=== PATIENT | female | born 1975 | race Caucasian/White ===

== ENCOUNTER 2019-11-12 12:29 | Emergency (ER) | payer BC, OTHER ==
[2019-11-12] MEDS ORDERED: Ondansetron 4 MG/2 ML SDV IVPUSH ONE (13:27)
[2019-11-12] MEDS ORDERED: HYDROmorphone 1 MG/ML Syringe IVPUSH STA (13:27)
[2019-11-12] MEDS ORDERED: Sodium Chloride 0.9% 1,000 ML IV SCH (13:30)
--- NOTE | 2019-11-12 14:08 | EDM.PDOC ---
ED HPI GENERAL MEDICAL PROBLEM - General Chief Complaint: Gastrointestinal Problem Stated Complaint: VOMITING/DIARRHEA Time Seen by Provider: 11/12/19 13:27 Source of Information: Reports: Patient, RN Notes Reviewed History Limitations: Reports: No Limitations - History of Present Illness INITIAL COMMENTS - FREE TEXT/NARRATIVE: Patient is a 43-year-old female who presents to the ED for the evaluation of vomiting and diarrhea. Patient notes this is been present for around 5 days, she states that nothing she has eaten or drank has really stayed down at all. She is also complaining of pain in her left upper abdomen, this is worsened over the last 3 days. She does note some chills at home but has not been complaining of any fever as she does not have a thermometer at home. The patient did not take any sort of uuau-rob-nzhdyul medications for the vomiting or diarrhea. She states that she is getting dizzy when standing at this time as well. Patient notes a history for a bilateral mastectomy, in 2015. She notes that she does have a trams flap, which she explained to us as the abdominal wall, being utilized onto the chest wall for padding after the mastectomy. Patient's primary care provider is Dr. Mandel. She states that she had a surgery done September 08, and was given 1 dose of antibiotics for this prior to that surgery otherwise she relates no other antibiotic use in this timeframe. Left Upper Abdomen Pain Score (Numeric/FACES): 7 - Related Data Allergies Allergy/AdvReac Type Severity Reaction Status Date / Time metoclopramide [From Reglan] Allergy Other Verified 11/12/19 13:13 morphine Allergy Other Verified 11/12/19 13:13 Home Meds: Home Meds Zolpidem [Ambien] 10 mg PO DAILY 04/17/19 [History] traZODone HCl [Trazodone HCl] 150 mg PO DAILY 04/17/19 [History] [place] Carbonate [[place] Carbonate ER] 450 mg PO BID 11/12/19 [History] Ondansetron [Zofran ODT] 4 mg PO Q8H PRN #12 tab.dis 11/12/19 [Rx] Past Medical History Psychiatric History: Reports: Anxiety, Depression, Suicide Attempt - Past Surgical History GI Surgical History: Reports: Appendectomy, Cholecystectomy Female Surgical History: Reports: Breast Implant, Hysterectomy, Mastectomy, Tubal Ligation Other Female Surgeries/Procedures: bilateral mastectomy Social & Family History - Tobacco Use Smoking Status *Q: Current Every Day Smoker Years of Tobacco use: 20 Packs/Tins Daily: 0.5 - Caffeine Use Caffeine Use: Reports: Energy Drinks - Recreational Drug Use Recreational Drug Use: No ED ROS GENERAL - Review of Systems Review Of Systems: See Below Constitutional: Reports: Chills, Decreased Appetite. Denies: Fever Respiratory: Denies: Shortness of Breath, Cough Cardiovascular: Denies: Chest Pain GI/Abdominal: Reports: Abdominal Pain (LUQ), Diarrhea, Decreased Appetite, Nausea, Vomiting : Denies: Dysuria, Frequency, Urgency Musculoskeletal: Reports: Back Pain (L upper back) ED EXAM, GI/ABD - Physical Exam Exam: See Below Exam Limited By: No Limitations General Appearance: Alert, WD/WN, No Apparent Distress Respiratory/Chest: No Respiratory Distress, Lungs Clear, Normal Breath Sounds, No Accessory Muscle Use, Chest Non-Tender Cardiovascular: Normal Peripheral Pulses, Regular Rate, Rhythm, No Murmur GI/Abdominal Exam: Normal Bowel Sounds, Soft, No Distention, No Mass, Tender ( Upper abdomen mainly, there is some hardness noted to upper abdomen over her trams flap scars, suggestive of increased scar tissue.) Back Exam: Normal Inspection, Full Range of Motion. No: CVA Tenderness (L), CVA Tenderness (R) Extremities: Normal Inspection, Normal Capillary Refill Neurological: Alert, Oriented, Normal Cognition, No Motor/Sensory Deficits Psychiatric: Normal Affect, Normal Mood Skin Exam: Warm, Dry, Intact, Normal Color, No Rash Course - Vital Signs Last Recorded V/S: Last Vital Signs Temp 97.7 F 11/12/19 13:14 Pulse 80 11/12/19 13:14 Resp 16 11/12/19 13:14 BP 121/75 11/12/19 13:14 Pulse Ox 100 11/12/19 13:14 - Orders/Labs/Meds Orders: Active Orders 24 hr Category Date Time Status Abdomen Pelvis w Cont [CT] Stat Exams 11/12/19 14:08 Ordered C DIFFICILE PCR W/REFLEX [MOLEC] Stat Lab 11/12/19 16:35 Received CULTURE STOOL + SHIGATOX [RM] Stat Lab 11/12/19 14:07 Ordered Sodium Chloride 0.9% [Normal Saline] 1,000 ml Med 11/12/19 13:30 Ordered IV ASDIRECTED Sodium Chloride 0.9% [Saline Flush] Med 11/12/19 15:31 Active 10 ml FLUSH ONETIME PRN Medication Orders Sodium Chloride (Normal Saline) 1,000 mls @ 999 mls/hr IV ASDIRECTED ROSA Last Admin: 11/12/19 15:45 Dose: 999 mls/hr Sodium Chloride (Saline Flush) 10 ml FLUSH ONETIME PRN PRN Reason: IV FLUSH Last Admin: 11/12/19 15:41 Dose: 10 ml Labs: Laboratory Tests 11/12/19 11/12/19 11/12/19 Range/Units 14:00 14:00 15:35 WBC 9.77 (3.98-10.04) K/mm3 RBC 5.04 (3.98-5.22) M/mm3 Hgb 14.8 (11.2-15.7) gm/dl Hct 45.7 H (34.1-44.9) % MCV 90.7 D (79.4-94.8) fl MCH 29.4 (25.6-32.2) pg MCHC 32.4 (32.2-35.5) g/dl RDW Std Deviation 48.7 H (36.4-46.3) fL Plt Count 266 (182-369) K/mm3 MPV 9.8 (9.4-12.3) fl Neutrophils % (Manual) 56 (40-60) % Band Neutrophils % 0 (0-10) % Lymphocytes % (Manual) 23 (20-40) % Atypical Lymphs % 0 % Monocytes % (Manual) 5 (2-10) % Eosinophils % (Manual) 16 H (0.7-5.8) % Basophils % (Manual) 0 L (0.1-1.2) Platelet Estimate Adequate RBC Morph Comment Normal Sodium 140 (136-145) mEq/L Potassium 4.2 (3.5-5.1) mEq/L Chloride 106 (98-107) mEq/L Carbon Dioxide 23 (21-32) mEq/L Anion Gap 15.2 H (5-15) BUN 7 (7-18) mg/dL Creatinine 0.9 (0.55-1.02) mg/dL Est Cr Clr Drug Dosing 62.07 mL/min Estimated GFR (MDRD) > 60 (>60) mL/min BUN/Creatinine Ratio 7.8 L (14-18) Glucose 84 (74-106) mg/dL Calcium 9.3 (8.5-10.1) mg/dL Total Bilirubin 0.2 (0.2-1.0) mg/dL AST 13 L (15-37) U/L ALT 23 (14-59) U/L Alkaline Phosphatase 85 (46-116) U/L Total Protein 7.3 (6.4-8.2) g/dl Albumin 3.6 (3.4-5.0) g/dl Globulin 3.7 gm/dL Albumin/Globulin Ratio 1.0 (1-2) Lipase 121 (73-393) U/L Urine Color Light yellow (Yellow) Urine Appearance Clear (Clear) Urine pH 7.5 (5.0-8.0) Ur Specific [place] 1.020 (1.005-1.030) Urine Protein Negative (Negative) Urine Glucose (UA) Negative (Negative) Urine Ketones Negative (Negative) Urine Occult Blood Negative (Negative) Urine Nitrite Negative (Negative) Urine Bilirubin Negative (Negative) Urine Urobilinogen 0.2 (0.2-1.0) Ur Leukocyte Esterase Negative (Negative) Urine RBC 0-5 (0-5) /hpf Urine WBC 0-5 (0-5) /hpf Ur Squamous Epith Cells 5-10 H (0-5) /hpf Urine Bacteria Few (FEW) /hpf Urine Mucus Few (FEW) /hpf Meds: Medications Generic Name Dose Route Start Last Admin Trade Name Freq PRN Reason Stop Dose Admin Sodium Chloride 1,000 mls @ 999 mls/hr 11/12/19 13:30 11/12/19 15:45 Normal Saline IV 999 mls/hr ASDIRECTED ROSA Administration Sodium Chloride 10 ml 11/12/19 15:31 11/12/19 15:41 Saline Flush FLUSH 10 ml ONETIME PRN Administration IV FLUSH Discontinued Medications Generic Name Dose Route Start Last Admin Trade Name Freq PRN Reason Stop Dose Admin Diatrizoate Meglum/Diatrizoate Sod 90 ml 11/12/19 15:31 11/12/19 15:41 Gastrografin 37% PO 11/12/19 15:32 90 ml ONETIME ONE Administration Dicyclomine HCl 20 mg 11/12/19 18:05 11/12/19 18:13 Bentyl PO 11/12/19 18:06 20 mg ONETIME ONE Administration Hydromorphone HCl 0.5 mg 11/12/19 13:27 11/12/19 15:30 Dilaudid IVPUSH 11/12/19 13:28 0.5 mg ONETIME STA Administration Promethazine HCl 25 mg/ Sodium 51 mls @ 100 mls/hr 11/12/19 17:36 11/12/19 17 :59 Chloride IV 11/12/19 18:06 100 mls/hr ONETIME ONE Administration Iopamidol 100 ml 11/12/19 15:31 11/12/19 15:41 Isovue-300 (61%) IVPUSH 11/12/19 15:32 100 ml ONETIME ONE Administration Loperamide HCl 4 mg 11/12/19 14:24 11/12/19 15:45 Imodium PO 11/12/19 14:25 4 mg ONETIME ONE Administration Ondansetron HCl 4 mg 11/12/19 13:27 11/12/19 15:28 Zofran IVPUSH 11/12/19 13:28 4 mg ONETIME ONE Administration - Re-Assessments/Exams Free Text/Narrative Re-Assessment/Exam: 11/12/19 14:11 She presents to the ED for the evaluation of nausea and vomiting and diarrhea for the past 5 days. She states she does not been able to keep anything down per mouth, or it came straight back out the other end. Will get some IV fluids , 0.5 mg IV Dilaudid, 4 mg Zofran, CBC, CMP, UA, lipase, abdomen pelvis CT. Along with stool cultures if she can provide us with one. 11/12/19 16:14 Was reported by nursing that they were having difficulties getti an IV established. Patient started fluids and got pain meds quite late. CT is back, and demonstrates no acute abnormalities appreciated. Patient has not been able to give us a urinalysis or stool samples at this time. 11/12/19 18:20 Patient was able to provide us with a stool sample, she does have a few white blood cells noted in her stools, C. difficile has been collected as well. This is negative however. Due to the patient's length of symptoms, I will try to treat her conservatively and see if it does not get better over the weekend, and if it does not she should be reevaluated early next week. Departure - Departure Time of Disposition: 16:27 Disposition: Home, Self-Care 01 Condition: Fair Clinical Impression: Gastroenteritis - Discharge Information *PRESCRIPTION DRUG MONITORING PROGRAM REVIEWED*: No *COPY OF PRESCRIPTION DRUG MONITORING REPORT IN PATIENT ABELARDO: No Prescriptions: Ondansetron [Zofran ODT] 4 mg PO Q8H PRN #12 tab.dis PRN Reason: Nausea Instructions: Food Choices to Help Relieve Diarrhea, Adult Referrals: Alok Quinones MD [Primary Care Provider] - Forms: ED Department Discharge Additional Instructions: You have been evaluated in the ED for nausea/vomiting/diarrhea. It is likely that this is caused from a viral gastroenteritis. You did receive a CT in the ER, and this demonstrated no focal abnormalities. Your laboratory evaluation also was within normal limits. You have received IV fluid in the ED to help with the dehydration from the vomiting and diarrhea. Over the next 24-48 hours please try to limit diet to clear liquids and advance as tolerate to a bland diet to alleviate symptoms of nausea/vomiting/diarrhea. It is highly recommended that you start probiotics in your daily routine. You may ask the pharmacist for a good recommendation and they should be able to provide you with one. Please use the Zofran every 8 hours as needed for nausea. Please return to the ED if your symptoms should change or worsen. Sepsis Event Note - Evaluation Sepsis Screening Result: No Definite Risk - Focused Exam Vital Signs: Vital Signs Temp Pulse Resp BP Pulse Ox 11/12/19 13:14 97.7 F 80 16 121/75 100 Date Exam was Performed: 11/12/19 Time Exam was Performed: 18:20 - My Orders Last 24 Hours: My Active Orders 11/12/19 13:30 Sodium Chloride 0.9% [Normal Saline] 1,000 ml IV ASDIRECTED 11/12/19 14:07 CULTURE STOOL + SHIGATOX [RM] Stat 11/12/19 14:08 Abdomen Pelvis w Cont [CT] Stat 11/12/19 15:31 Sodium Chloride 0.9% [Saline Flush] 10 ml FLUSH ONETIME PRN 11/12/19 16:35 C DIFFICILE PCR W/REFLEX [MOLEC] Stat - Assessment/Plan Last 24 Hours: My Active Orders 11/12/19 13:30 Sodium Chloride 0.9% [Normal Saline] 1,000 ml IV ASDIRECTED 11/12/19 14:07 CULTURE STOOL + SHIGATOX [RM] Stat 11/12/19 14:08 Abdomen Pelvis w Cont [CT] Stat 11/12/19 15:31 Sodium Chloride 0.9% [Saline Flush] 10 ml FLUSH ONETIME PRN 11/12/19 16:35 C DIFFICILE PCR W/REFLEX [MOLEC] Stat
[2019-11-12] MEDS ORDERED: Loperamide 2 MG Cap PO ONE (14:24)
[2019-11-12] MEDS ORDERED: Sodium Chloride 0.9% 10 ML Syringe FLUSH PRN (15:31)
[2019-11-12] MEDS ORDERED: Diatrizoate Meglumine/Diatrizoate Sodium 37% 120 ML Bottle PO ONE (15:31)
[2019-11-12] MEDS ORDERED: Iopamidol 612 MG/ML 100 ML Bottle IVPUSH ONE (15:31)
[2019-11-12] MEDS ORDERED: Promethazine 25 MG in Sodium Chloride 0.9% 50 ML IV ONE (17:36)
[2019-11-12] MEDS ORDERED: Dicyclomine 10 MG Cap PO ONE (18:05)
--- NOTE | 2019-11-13 10:37 | CT ---
CT abdomen and pelvis Technique: Multiple axial sections were obtained from above the dome of the diaphragm inferiorly through the pubic symphysis. Intravenous and oral contrast was utilized. Delayed images were obtained through the bladder. Comparison: No prior CT abdomen or pelvis exam is available. Visualized lung bases show nothing acute. Liver contains no focal abnormality. Spleen appears within normal limits. Adrenal glands show no nodule. Pancreas is within normal limits. Kidneys show symmetric contrast enhancement without hydronephrosis or mass. Gallbladder not visualized. Abdominal aorta shows no aneurysm. No retroperitoneal adenopathy is seen. There is some atherosclerotic change within the distal aorta. Mild diverticulosis is noted within the descending and sigmoid colon. No inflammatory change of diverticulitis is seen. There may be mild bowel wall thickening within the sigmoid colon. No free fluid is seen. No inflammatory change is seen. Delayed images shows contrast within the distal ureters and within the bladder. Bone window settings were reviewed which shows no acute osseous finding. Impression: 1. Possible bowel wall thickening within portions of the sigmoid colon. Nonspecific colitis is suggested. 2. No additional abnormality is appreciated on CT study of the abdomen and pelvis. Slightly disagree with preliminary report issued by [facility], findings are suggestive of mild bowel wall thickening within the sigmoid colon compatible with nonspecific colitis, this preliminary report was finalized on 11/12/19, 5:07 PM Central Time
== END 2019-11-12 18:35 | disposition home or self-care (01) ==
LOC: JD.ED 12:29
DX: K52.9 Noninfective gastroenteritis and colitis, unspecified (principal); F32.9 Major depressive disorder, single episode, unspecified; F41.9 Anxiety disorder, unspecified; F17.210 Nicotine dependence, cigarettes, uncomplicated; Z88.5 Allergy status to narcotic agent; Z88.8 Allergy status to other drugs, medicaments and biological substances; Z90.49 Acquired absence of other specified parts of digestive tract; Z90.89 Acquired absence of other organs; Z90.710 Acquired absence of both cervix and uterus; Z98.51 Tubal ligation status; Z79.899 Other long term (current) drug therapy
CPT/HCPCS: 36415; 74177; 80053; 81001; 83690; 85007; 85027; 87046; 87427; 87493; 89055; 96361; 96365; 96375; 99284; A9270; J1170; J2405; J2550; J7030; J7050; Q9963; Q9967; 99283

== ENCOUNTER 2019-11-27 18:34 | Emergency (ER) | payer OTHER ==
--- NOTE | 2019-11-27 19:36 | EDM.PDOC ---
ED HPI GENERAL MEDICAL PROBLEM - General Chief Complaint: Abdominal Pain Stated Complaint: ABDOMINAL PAIN Time Seen by Provider: 11/27/19 19:00 Source of Information: Reports: Patient History Limitations: Reports: No Limitations - History of Present Illness INITIAL COMMENTS - FREE TEXT/NARRATIVE: Mrs. Garcia is a very pleasant 43-year-old woman who, according to medical records, was seen in this ED on 11/12/2019 with a complaint at that time of 5 days of vomiting and diarrhea. She had had left upper quadrant abdominal pain, especially for 3 days. She had had chills, but no known fever. She felt lightheaded when upright. Blood work, a urinalysis, and a CT scan of her abdomen and pelvis with oral and IV contrast were unremarkable. Stool was negative for differential, and subsequent stool cultures have returned negative. The patient was diagnosed with gastroenteritis and prescribed Zofran. She now returns to the ED with a complaint of right upper quadrant abdominal pain in the site of a known abdominal wall hernia. She had undergone bilateral mastectomy with a TRAM flap in 2015. The hernia was evaluated by a surgeon in [place], whose name the patient cannot recall, about 8 months ago. She was told by the surgeon that he would not perform a surgical repair unless the patient quit smoking. She has not yet quit smoking, therefore the hernia has not been addressed. She states that she developed pain at the hernia site this morning after coughing, and that the pain is always present, but made worse if she sits up, coughs, or with most movements. She has taken both Tylenol and ibuprofen, without much relief. She has not tried any physical home maneuvers to try to reduce her hernia. No prior significant pain with this hernia. The patient's PCP is Dr. Alok Quinones. She did not receive an influenza vaccine this season, and declined an offer to receive one here today. Abdomen Pain Score (Numeric/FACES): 7 - Related Data Allergies Allergy/AdvReac Type Severity Reaction Status Date / Time metoclopramide [From Reglan] Allergy Other Verified 11/12/19 13:13 morphine Allergy Other Verified 11/12/19 13:13 Home Meds: Home Meds Zolpidem [Ambien] 10 mg PO DAILY 04/17/19 [History] traZODone HCl [Trazodone HCl] 150 mg PO DAILY 04/17/19 [History] [place] Carbonate [[place] Carbonate ER] 450 mg PO BID 11/12/19 [History] Past Medical History Gastrointestinal History: Reports: Diverticulosis (per CT 11/12/2019) Psychiatric History: Reports: Anxiety, Bipolar, Depression, Suicide Attempt - Past Surgical History HEENT Surgical History: Reports: Oral Surgery (wisdom teeth extraction) GI Surgical History: Reports: Appendectomy, Cholecystectomy (2013), Hernia, Abdominal (periumbilical), Other (See Below) (TRAM flap) Female Surgical History: Reports: Breast Implant (2016, subsequently removed) , Hysterectomy (partial), Mastectomy (bilateral), Tubal Ligation Social & Family History - Tobacco Use Smoking Status *Q: Current Every Day Smoker Years of Tobacco use: 20 Packs/Tins Daily: 0.5 - Caffeine Use Caffeine Use: Reports: None - Alcohol Use Alcohol Use History: No - Recreational Drug Use Recreational Drug Use: No - Living Situation & Occupation Living situation: Reports: , with Spouse, with Family (3 kids + nephew) Occupation: Employed ([employer]) ED ROS GENERAL - Review of Systems Review Of Systems: Comprehensive ROS is negative, except as noted in HPI. ED EXAM, GI/ABD - Physical Exam Exam: See Below Exam Limited By: No Limitations General Appearance: Alert, WD/WN, No Apparent Distress Eyes: Bilateral: Normal Appearance, EOMI Ears: Normal External Exam, Hearing Grossly Normal Nose: Normal Inspection Throat/Mouth: Normal Inspection, Normal Lips, Normal Voice, No Airway Compromise Head: Atraumatic, Normocephalic Neck: Normal Inspection, Full Range of Motion Respiratory/Chest: No Respiratory Distress, Lungs Clear, Normal Breath Sounds, No Accessory Muscle Use Cardiovascular: Normal Peripheral Pulses, Regular Rate, Rhythm, No Edema, No Gallop, No JVD, No Murmur, No Rub GI/Abdominal Exam: Normal Bowel Sounds, Soft, No Organomegaly, No Distention, No Abnormal Bruit, No Mass, Tender (In the right upper quadrant only. A hernia is palpable when the patient performs a Valsalva maneuver, however, the bulge regresses when she relaxes.) (Female) Exam: Deferred Rectal (Female) Exam: Deferred Back Exam: Normal Inspection, Full Range of Motion, NT Extremities: Normal Inspection, Normal Range of Motion, No Pedal Edema, Normal Capillary Refill Neurological: Alert, Oriented, Normal Cognition, No Motor/Sensory Deficits Psychiatric: Normal Affect Skin Exam: Warm, Dry, Intact, Normal Color, No Rash Course - Vital Signs Last Recorded V/S: Last Vital Signs Temp 37.1 C 11/27/19 18:48 Pulse 90 11/27/19 18:48 Resp 20 11/27/19 18:48 BP 122/74 11/27/19 18:48 Pulse Ox 98 11/27/19 18:48 - Orders/Labs/Meds Orders: Active Orders 24 hr Category Date Time Status Abdomen wo Cont [CT] Stat Exams 11/27/19 19:26 Taken - Re-Assessments/Exams Free Text/Narrative Re-Assessment/Exam: 11/27/19 19:27 While I can palpate a hernia to the patient's right upper quadrant when she performs a Valsalva maneuver, I am not convinced that the hernia is incarcerated , however, I would also not want to send the patient home with an incarcerated abdominal wall hernia. In an effort to minimize unnecessary radiation to the patient, the case was discussed with Dr. Barbosa at 19:23. Unfortunately, while ultrasound can identify that the patient has a hernia, it is not very good at determining whether or not the hernia is incarcerated. In this case, we already know that the patient has a hernia. He recommended a CT scan without contrast. Because the hernia in question is located in the right upper quadrant , I ordered a CT scan of the abdomen, only. The patient states that she was driven to the ED by her , but declined an offer for pain medication. 11/27/19 22:25 CT of the abdomen without contrast is read by Dr. Barbosa as: 1. Very small right upper anterior abdominal wall hernias as described above. 2. Nothing else acute is seen on noncontrast CT study of the abdomen. The body of the report reads "Right upper abdominal wall hernia is seen. This extends through the 1st layer of muscle but does not extend through the external oblique muscle. Hernia opening measures about 4 mm. There is no bowel seen to extend into this hernia defect. Slight increased inflammatory change from prior exam suggesting minimal amount of possible incarcerated fat. 2nd small defect through the first layer of muscle is noted slightly more medial than the 1st lesion. No inflammatory changes seen around this small defect." 11/27/19 22:33 The above was discussed with Dr. Ott at 22:31. He recommended that the patient take [id number] ibuprofen and follow-up with her surgeon in [place]. Departure - Departure Time of Disposition: 22:33 Disposition: Home, Self-Care 01 Condition: Good Clinical Impression: Abdominal wall hernia - Discharge Information *PRESCRIPTION DRUG MONITORING PROGRAM REVIEWED*: Not Applicable *COPY OF PRESCRIPTION DRUG MONITORING REPORT IN PATIENT ABELARDO: Not Applicable Referrals: Alok Quinones MD [Primary Care Provider] - Forms: ED Department Discharge Additional Instructions: You were seen in the emergency room for pain at a previously known hernia site in your upper right abdominal wall. Work-up in the ER included a CT scan of your abdomen without contrast, which confirmed that you have 2 small hernias in that location, one of which has some inflammation, but neither with the bowel incarceration. We recommend that you take [id number] ibuprofen as needed for discomfort. We recommend that you follow-up with your Surgeon in [place], for further evaluation. If any other problems, please do not hesitate to return to the ER. Sepsis Event Note - Evaluation Sepsis Screening Result: No Definite Risk - Focused Exam Vital Signs: Vital Signs Temp Pulse Resp BP Pulse Ox 11/27/19 18:48 37.1 C 90 20 122/74 98 Date Exam was Performed: 11/27/19 Time Exam was Performed: 22:25 - My Orders Last 24 Hours: My Active Orders 11/27/19 19:26 Abdomen wo Cont [CT] Stat - Assessment/Plan Last 24 Hours: My Active Orders 11/27/19 19:26 Abdomen wo Cont [CT] Stat
--- NOTE | 2019-11-29 10:26 | CT ---
CT abdomen Technique: Multiple axial sections were obtained from above the dome of the diaphragm inferiorly to the iliac crest. Reconstructed coronal and sagittal images were obtained. Comparison: Prior CT abdomen and pelvis exam of 11/12/19. Findings: Right upper abdominal wall hernia is seen. This extends through the 1st layer of muscle but does not extend through the external oblique muscle. Hernia opening measures about 4 mm. There is no bowel seen to extend into this hernia defect. Slight increased inflammatory change from prior exam suggesting minimal amount of possible incarcerated fat. Second small defect through the 1st layer of muscle is noted slightly more medial than the 1st lesion. No inflammatory change is seen around this small defect. The visualized lung bases show nothing acute. Noncontrast appearance of the liver and spleen appears unremarkable. Kidneys show no abnormal calcifications or hydronephrosis. Pancreas is normal. Aorta shows no aneurysm. No mesenteric abnormalities are appreciated. Impression: 1. Very small right upper anterior abdominal wall hernias as described above. 2. Nothing else acute is seen on noncontrast CT study of the abdomen. Diagnostic code #3 This report was dictated in [place] Standard Time [facility]
== END 2019-11-27 22:48 | disposition home or self-care (01) ==
LOC: JD.ED 18:34
DX: K43.9 Ventral hernia without obstruction or gangrene (principal); F17.210 Nicotine dependence, cigarettes, uncomplicated; F31.9 Bipolar disorder, unspecified; F41.9 Anxiety disorder, unspecified; Z79.899 Other long term (current) drug therapy; Z88.5 Allergy status to narcotic agent; Z88.8 Allergy status to other drugs, medicaments and biological substances
CPT/HCPCS: 74150; 74150-26; 99283; 99284-25